=== PATIENT | male | born 1955 | race Caucasian/White ===

== ENCOUNTER 2022-05-05 11:36 | Emergency (ER) | payer SELFPAY ==
[2022-05-05 11:45] VITALS: BP 91/57; PULSE 94; RESP 18; TEMP 36.8; O2SAT 98; BMI 25.1
--- NOTE | 2022-05-05 12:25 | CT_ITS ---
WS: [id number] CT HEAD TECHNIQUE: Noncontrast CT of the head obtained from the skullbase to the vertex. CLINICAL INFORMATION: weakness/numbness COMPARISON: None. DLP: 1027.[address] scans at [facility] use at least one of these dose optimization techniques: automated e xposure control; mA and/or kV adjustment per patient size (includes targeted exams where dose is matc hed to clinical indication); or iterative reconstruction. FINDINGS: No evidence of intracranial hemorrhage or mass effect. Ventricular system and basal cisterns are aleman nt. Moderate small vessel changes with moderate parenchymal volume loss. No extra-axial fluid collect ions. No evidence of mass or mass effect. Vascular calcification. Air-fluid level in the RIGHT maxillary sinus consistent with sinusitis. Mastoid air cells are well ae rated. CT/CT head wo con* 03254 IMPRESSION: 1. No evidence of intracranial hemorrhage or mass effect. 2. Moderate small vessel changes. Moderate parenchymal volume loss worse in th e frontal lobes. 3. Vascular calcification. 4. RIGHT maxillary sinusitis.
--- NOTE | 2022-05-05 12:59 | ED_ITS ---
HPI - General Adult General: Chief complaint: General Medical Stated complaint: Exteme Weakness, numbness in lips Time Seen by Provider: 05/05/22 12:24 Source: patient Mode of arrival: ambulatory History of Present Illness: 66-year-old male presents emergency room he had numbness in the bottom of his feet that some progressively worsening for the last year. Significantly changed in the last 3 months. No trauma no history of strokes no known history of DVT. He is having increasing difficulty with walking for the last month. Patient demonstrates a flat footed gait with significant balance difficulties. He denies any headache any loss vision any difficulty speech or swallowing. Onset (ago): year(s) (1) Relieving factors: none Exacerbating factors: none Associated symptoms: Reports weakness; Deny chest pain, confusion, cough, diaphoresis, decreased appetite, dyspnea, fevers/chills, headache(s), malaise, nausea, rash, palpitations, seizures, short of breath, syncope or vomiting Treatments prior to arrival: none Review of Systems Const: Denies: fever(s), chills, malaise or diaphoresis ENMT: Denies: throat pain, ear or mastoid pain, nasal discharge or nasal congestion Card: Denies: chest pain, palpitations or syncope Resp: Denies: dyspnea GI: Denies: abdominal pain, nausea or vomiting : Denies: flank pain, dysuria, urinary frequency or urinary urgency Skin/Breast: Denies: rash Neuro: Reports: numbness in extremities, weakness in extremities, sensory changes and difficulty walking; Denies: headache(s) or confusion [facility] ED PFSH: Social History (Updated 05/05/22 @ 13:21 by Florin Salazar DO) Smoking and tobacco status: current every day smoker Alcohol intake: current Alcohol intake frequency: 3 or more drinks per day Physical Exam Const: GENERAL APPEARANCE: cooperative and comfortable ORIENTATION/CONSCIOUSNESS: Yes awake, Yes oriented to person, Yes oriented to place and Yes oriented to time HENMT: COMMON NORMALS: normocephalic, atraumatic and hearing grossly normal bilaterally HEAD & SCALP: normocephalic and atraumatic Resp: COMMON NORMALS: normal respiratory effort, No retractions, No use of accessory muscles and clear to auscultation bilaterally AUSCULTATION: clear to auscultation bilaterally Cardio: COMMON NORMALS: regular rate, regular rhythm and No murmurs present (Cardio) RATE: regular rate RHYTHM: regular rhythm GI: COMMON NORMALS: Soft to palpation and No hepatosplenomegaly present AUSCULTATION: Yes normoactive bowel sounds PALPATION: Yes Soft to palpation, No Tenderness to palpation present (GI), No Guarding due to palpation present (GI) and Yes No hepatosplenomegaly present Extremity: COMMON NORMALS: normal to inspection, capillary refill normal, no clubbing, cyanosis or edema, no calf tenderness and no pedal edema Neuro: SENSORIUM/ORIENTATION: Yes oriented to person, Yes oriented to place and Yes oriented to time COORDINATION/BALANCE: [id number] test normal DEEP TENDON REFLEXES: Right patellar reflex intensity grade: 0 and Left patellar reflex intensity grade: 0 COORDINATION: [id number] test normal Skin: COMMON NORMALS: no rashes or lesions noted GENERAL SKIN EXAM: no rashes or lesions noted Course Vital Signs: Vital signs: Vital Signs Temperature 98.2 F 05/05/22 11:45 Pulse Rate 89 05/05/22 15:16 Respiratory Rate 16 05/05/22 15:16 Blood Pressure 124/65 05/05/22 15:16 Pulse Oximetry 100 05/05/22 15:16 Oxygen Delivery Me thod 05/05/22 11:45 [facility] - General Adult Medical Decision Making On exam patient has cerebellar ataxia he has some cerebellar and cerebral atrophy on the CT but no acute findings. He has a macrocytosis and a mild hyponatremia. His transaminases are actually low with the ALT being below detectable level alk phos elevated. His vital signs are otherwise unremarkable he has no focal neurologic deficits. Deep tendon reflexes were absent of patellar tendon but his dorsum plantar flexor strength was 5 of 5. 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 Lab Data I reviewed the patient's lab results. 05/05/22 12:57 05/05/22 12:[address] 05/05/22 12:25 IMPRESSION: 1. No evidence of intracranial hemorrhage or mass effect. 2. Moderate small vessel changes. Moderate parenchymal volume loss worse in the frontal lobes. 3. Vascular calcification. 4. RIGHT maxillary sinusitis. Laboratory Results WBC 14.2 10^3/uL (4.0-10.0) H 05/05/22 12:57 RBC 4.34 10^6/uL (4.1-5.3) 05/05/22 12:57 Hgb 15.4 g/dL (11.7-16.6) 05/05/22 12:57 Hct 44.5 % (42.0-52.0) 05/05/22 12:57 MCV 102.5 fl (80-94) H 05/05/22 12:57 MCH 35.5 pg (28.0-34.0) H 05/05/22 12:57 MCHC 34.6 g/dL (30.0-36.0) 05/05/22 12:57 RDW 11.6 % (12.1-15.1) L 05/05/22 12:57 Plt Count 278 10^3/cmm (130-400) 05/05/22 12:57 MPV 8.6 fL (7.4-10.4) 05/05/22 12:57 Neut % (Auto) 74.2 % 05/05/22 12:57 Lymph % (Auto) 15.5 % 05/05/22 12:57 Wayne % (Auto) 8.8 % 05/05/22 12:57 Eos % (Auto) 0.3 % 05/05/22 12:57 Baso % (Auto) 0.6 % 05/05/22 12:57 Neut # (Auto) 10.56 10^3/uL (1.8-7.7) H 05/05/22 12:57 Lymph # (Auto) 2.2 10^3/uL (0.8-4.8) 05/05/22 12:57 Wayne # (Auto) 1.3 10^3/uL (0.2-0.9) H 05/05/22 12:57 Eos # (Auto) 0.0 10^3/uL (0.0-0.8) 05/05/22 12:57 Baso # (Auto) 0.1 10^3/uL (0.0-0.1) 05/05/22 12:57 Nucleated RBC % (auto) 0 % 05/05/22 12:57 Nucleated RBCs # 0.0 /100WBC 05/05/22 12:57 Sodium 133 mmol/L (136-145) L 05/05/22 12:57 Potassium 4.1 mmol/L (3.5-5.1) 05/05/22 12:57 Chloride 97 mmol/L (98-107) L 05/05/22 12:57 Carbon Dioxide 24 mmol/L (22-29) 05/05/22 12:57 Anion Gap 16.1 (5-19) 05/05/22 12:57 BUN 9 mg/dL (8-23) 05/05/22 12:57 Creatinine 0.5 mg/dL (0.7-1.2) L 05/05/22 12:57 GFR Calculation 166.9 mL/min (90-130) H 05/05/22 12:57 Glucose 117 mg/dL (65-115) H 05/05/22 12:57 Calculated Osmolality 276 mOsm/kg (285-295) L 05/05/22 12:57 Calcium 8.7 mg/dL (8.5-10.5) 05/05/22 12:57 Total Bilirubin 0.4 mg/dL (0.15-1.2) 05/05/22 12:57 AST 17 U/L (0-40) 05/05/22 12:57 ALT < 5 U/L (0-41) 05/05/22 12:57 Alkaline Phosphatase 153 U/L (40-130) H 05/05/22 12:57 Creatine Kinase 18 U/L (39-308) L 05/05/22 12:57 Total Protein 7.9 g/dL (6.6-8.7) 05/05/22 12:57 Albumin 3.1 g/dL (3.5-5.2) L 05/05/22 12:57 Globulin 4.8 g/dL (1.3-4.6) H 05/05/22 12:57 Urine Color Mayela (Yellow) 05/05/22 14:45 Urine Appearance Clear (CLEAR) 05/05/22 14:45 Urine pH 6 (5-7) 05/05/22 14:45 Ur Specific [place] 1.015 (1.005-1.030) 05/05/22 14:45 Urine Protein Neg (Negative) 05/05/22 14:45 Urine Glucose (UA) Norm (Normal) 05/05/22 14:45 Urine Ketones Negative (Negative) 05/05/22 14:45 Urine Blood Neg (Negative) 05/05/22 14:45 Urine Nitrate Negative (Negative) 05/05/22 14:45 Urine Bilirubin 1+ (Negative) H 05/05/22 14:45 Urine Urobilinogen 4 mg/dL (Negative) H 05/05/22 14:45 Ur Leukocyte Esterase Negative (Negative) 05/05/22 14:45 Discharge Plan Discharge Patient Disposition: Home Clinical Impression: Cerebellar ataxia, Peripheral neuropathy, Macrocytosis, Hyponatremia Condition: Stable Prescriptions: No Action Vitamin B-12 1,000 mcg Tablet 2,000 mcg PO DAILY amlodipine 10 mg tablet 10 mg PO DAILY@14 atenolol 50 mg tablet 50 mg PO DAILY@09 Discharge Orders: Discharge ED (Routine); Ordered 05/05/22 Ordered By: Florin Salazar Referrals: Kathleen Jordan [Primary Care Provider] - Discharge Diet: Usual diet Discharge Activity: Limit activity as instructed Patient Instructions: Opioid Safety, Pain Management Activity Restrictions/Additional Instructions: You were seen today for peripheral neuropathy and difficulty walking (ataxia). There is a concern that your alcohol consumption is contributing to this difficulty strongly recommend that you abstain from alcohol. Physical therapy evaluation recommended that you use a walker for ambulation. Case management make arrangements for follow-up with neurology. Coding Level of Care Code ED Track Equipment Operator for Cely Fwd Exam Comprehensive
[2022-05-05 13:00] VITALS: BP 109/62; PULSE 92; RESP 16; O2SAT 100
--- NOTE | 2022-05-05 13:03 | PC.NURSE ---
PT PLACED ON CONTINUOUS NIBP, SPO2, AND CM
[2022-05-05 13:04] LABS: Basophils # 0.1 10^3/uL (0.0-0.1); Basophils % 0.6 %; Eosinophils % 0.3 %; Hematocrit 44.5 % (42.0-52.0); Hemoglobin 15.4 g/dL (11.7-16.6); Lymphocytes # 2.2 10^3/uL (0.8-4.8); Lymphocytes % 15.5 %; Mean Corpuscular HGB Conc 34.6 g/dL (30.0-36.0); Mean Corpuscular Hemoglobin 35.5 pg (28.0-34.0); Mean Corpuscular Volume 102.5 fl (80-94); Mean Platelet Volume 8.6 fL (7.4-10.4); Monocytes # 1.3 10^3/uL (0.2-0.9); Monocytes % 8.8 %; Neutrophils # 10.56 10^3/uL (1.8-7.7); Neutrophils % 74.2 %; Nucleated Red Blood Cells % 0 %; Platelet Count 278 10^3/cmm (130-400); Red Blood Count 4.34 10^6/uL (4.1-5.3); Red Cell Distribution Width 11.6 % (12.1-15.1); White Blood Count 14.2 10^3/uL (4.0-10.0)
--- NOTE | 2022-05-05 13:04 | PC.NURSE ---
PT STATES HE HAS HAD NUMBNESS IN HIS FEET FOR A COUPLE YEARS BUT SINCE JANUARY IT HAS STARTED TO ASCEND AND IS NOW UP TO THE LEVEL OF HIS LIPS. PT PASSED HEAL TO RODRIGUEZ TEST BUT SOME TREMORS WERE NOTED. 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
[2022-05-05 13:21] LABS: Alanine Aminotransferase < 5 U/L (0-41); Albumin Level 3.1 g/dL (3.5-5.2); Alkaline Phosphatase 153 U/L (40-130); Aspartate Amino Transferase 17 U/L (0-40); Blood Urea Nitrogen 9 mg/dL (8-23); Calcium 8.7 mg/dL (8.5-10.5); Carbon Dioxide 24 mmol/L (22-29); Chloride 97 mmol/L (98-107); Globulin 4.8 g/dL (1.3-4.6); Glomerular Filtration Rate 166.9 mL/min (90-130); Glucose 117 mg/dL (65-115); Osmolality Calculated 276 mOsm/kg (285-295); Sodium 133 mmol/L (136-145); Total Bilirubin 0.4 mg/dL (0.15-1.2); Total Protein 7.9 g/dL (6.6-8.7)
[2022-05-05 13:22] LABS: Creatinine Clr Calc Pharmacy 101.3526
[2022-05-05 13:23] LABS: Anion Gap 16.1 (5-19); Potassium 4.1 mmol/L (3.5-5.1)
[2022-05-05 13:45] LABS: Creatine Phosphokinase 18 U/L (39-308)
--- NOTE | 2022-05-05 13:45 | ECG_ITS ---
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 Measurements Intervals [place] Rate: 90 P: 61 NV: 144 QRS: 9 QRSD: 111 T: 41 QT: 373 QTc: 457 Interpretive Statements SINUS RHYTHM MODERATE INTRAVENTRICULAR CONDUCTION DELAY [110+ ms QRS DURATION] No previous ECG available for comparison Electronically Signed On 05-05-2022 16:36:26 CUT OFF SAW TENDER METAL by Molly Decker M.D. [email or web address] [id number]
--- NOTE | 2022-05-05 14:02 | PC.PHAR ---
pt states he takes care of his own medications-pt states he only takes the medications entered-ext med history shows lisinopril 20mg daily last filled 01/23/22 90d/s pt states he hasnt taken that medication for months states the pharmacy just kept filling it-
[2022-05-05 14:22] VITALS: BP 107/52; PULSE 89; RESP 12; O2SAT 100
[2022-05-05 14:30] VITALS: BP 107/52; PULSE 91; RESP 15; O2SAT 100
--- NOTE | 2022-05-05 14:33 | PC.NURSE ---
PHYSICAL THERAPY IN ROOM AMBULATING PT WITH WALKER
[2022-05-05 14:58] LABS: Add Urine Microscopic? NO; Charge for UA Resulting for Rev
[2022-05-05 15:09] LABS: Blood Urine Neg (Negative); Glucose Urine UA Norm (Normal); Ketones Urine Negative (Negative); Nitrate Urine Negative (Negative); Protein Urine Neg (Negative); Specific Gravity, Urine 1.015 (1.005-1.030); Urine Appearance Clear (CLEAR); Urine Color Amber (Yellow); pH Urine 6 (5-7)
[2022-05-05 15:10] LABS: Bilirubin Urine 1+ (Negative); Leukocyte Esterase Urine Negative (Negative); Urobilinogen Urine 4 mg/dL (Negative)
[2022-05-05 15:16] VITALS: BP 124/65; PULSE 89; RESP 16; O2SAT 100
--- NOTE | 2022-05-08 14:45 | DCPLANNER ---
Addendum entered by Anneliese Capone 05/10/22 15:04: manager life received the following message from centralized scheduling regarding follow up appointment for an MRI: Did not get self-pay clearance, had to inactivate. Original Note: manager life had message to schedule an outpatient MRI for patient. manager life faxed signed order to centralized scheduling, who will call patient with appointment information.
== END 2022-05-05 15:15 | disposition home or self-care (01) ==
PROVIDERS: Emergency Provider Family Medicine; PCP Internal Medicine
DX: G11.9 Hereditary ataxia, unspecified (principal); G62.9 Polyneuropathy, unspecified; D75.89 Other specified diseases of blood and blood-forming organs; E87.1 Hypo-osmolality and hyponatremia; F17.210 Nicotine dependence, cigarettes, uncomplicated
CPT/HCPCS: 70450; 80053; 81003; 82550; 85025; 93005; 97110; 97161; 99285

== ENCOUNTER 2022-05-29 12:18 | Emergency (ER) | payer SELFPAY ==
[2022-05-29] VITALS (14 sets, daily range): BP systolic 86–116; BP diastolic 50–61; PULSE 75–90; RESP 13–23; TEMP 36.3; O2SAT 94–98; BMI 25.1
--- NOTE | 2022-05-29 12:49 | W.ED.WEAKNES ---
HPI - Weakness General: Chief complaint: Weakness Stated complaint: Blurry in L eye, Numbness in arms and face Time Seen by Provider: 05/29/22 12:48 Source: patient Mode of arrival: ambulatory History of Present Illness: 66-year-old male presents emergency room complaining of bilateral weakness numbness difficulty with balance been present for 4 months. Seen this patient previously approximately 3 weeks ago with similar presentation he had cerebellar and cerebral atrophy at that time he is a heavy drinker he had macrocytosis and hyponatremia. 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 We had referred him to neurology he has not seen Dr. Velazco yet but he does have an appointment in early August. He did not see his primary care doctor but contacted them by phone today, and ws advised to come to be hospitalized so he came to the emergency room. MD Complaint: generalized weakness Onset (ago): month(s) (3-4) Duration: constant and progressively worsening Location: generalized Severity: mild Quality: tingling and numbness Relieving factors: none Exacerbating factors: none Associated symptoms: Denies chest pain, chills, confusion, melena, decreased appetite, diaphoresis, dysuria, easy bruising, fever(s), headache(s), myalgias, nausea, rash, short of breath, syncope or vomiting Review of Systems Const: Denies: fever(s), chills or diaphoresis Eyes: Reports: blurry vision (Left eye) ENMT: Denies: throat pain, ear or mastoid pain, nasal discharge or nasal congestion Card: Denies: chest pain, palpitations, irregular heart rhythm or syncope Resp: Denies: dyspnea, productive cough or non-productive cough GI: Denies: nausea, vomiting or melena : Denies: dysuria, urinary frequency or urinary urgency Skin/Breast: Denies: rash or pruritus Neuro: Reports: numbness in extremities, weakness in extremities and difficulty walking; Denies: headache(s) or confusion Reynaldo/Lymph: Denies: easy bruising PFSH ED PFSH: Medical History (Updated 06/06/22 @ 00:00 by ALEJANDRINA Valdez) Alcoholism Hypertension Social History (Updated 05/05/22 @ 13:21 by Florin Salazar DO) Smoking and tobacco status: current every day smoker Alcohol intake: current Alcohol intake frequency: 3 or more drinks per day Physical Exam Const: GENERAL APPEARANCE: cooperative and comfortable ORIENTATION/CONSCIOUSNESS: Yes awake HENMT: COMMON NORMALS: normocephalic and atraumatic HEAD & SCALP: normocephalic and atraumatic Resp: COMMON NORMALS: normal respiratory effort, No retractions, No use of accessory muscles and clear to auscultation bilaterally AUSCULTATION: clear to auscultation bilaterally Cardio: COMMON NORMALS: regular rate, regular rhythm and No murmurs present (Cardio) RATE: regular rate RHYTHM: regular rhythm GI: COMMON NORMALS: Soft to palpation and No hepatosplenomegaly present AUSCULTATION: Yes normoactive bowel sounds PALPATION: Yes Soft to palpation, No Tenderness to palpation present (GI), No Guarding due to palpation present (GI) and Yes No hepatosplenomegaly present Extremity: COMMON NORMALS: normal to inspection, capillary refill normal, no clubbing, cyanosis or edema, no calf tenderness and no pedal edema Skin: COMMON NORMALS: no rashes or lesions noted GENERAL SKIN EXAM: no rashes or lesions noted Course Vital Signs: Vital signs: Vital Signs Temperature 97.4 F L 05/29/22 12:34 Pulse Rate 75 05/29/22 14:37 Respiratory Rate 18 05/29/22 14:37 Blood Pressure 95/50 05/29/22 14:37 Pulse Oximetry 98 05/29/22 14:37 Oxygen Delivery Me thod 05/29/22 12:48 MDM - Weakness Medical Decision Making She has an upcoming appointment with neurology. Patient at the ER visit with him confides that the patient is continuing to drink. Patient has been seen previously as cerebellar ataxia and peripheral neuropathy likely due to his longstanding alcohol use. He does not have anything new or acute but continues to have difficulty with a current problem. Recommend he follow-up with neurology as currently planned. His blood pressure is running low recommend he decrease his amlodipine from 10 to 5 mg. Additionally recommend that he follow-up with his primary care doctor if is still low he may need to further decrease his medications including potentially stopping the amlodipine and/or the atenolol. Medical Records I reviewed the patient's medical records. Lab Data I reviewed the patient's lab results. 05/29/22 13:00 05/29/22 13:[address] 05/29/22 12:57 IMPRESSION: 1. No evidence of intracranial hemorrhage or mass effect. 2. Mild to moderate small vessel changes. Moderate parenchymal volume loss. 3. Inspissated secretions in the RIGHT maxillary sinus. 4. No acute intracranial findings. Laboratory Results WBC 13.8 10^3/uL (4.0-10.0) H 05/29/22 13:00 RBC 4.24 10^6/uL (4.1-5.3) 05/29/22 13:00 Hgb 15.0 g/dL (11.7-16.6) 05/29/22 13:00 Hct 43.6 % (42.0-52.0) 05/29/22 13:00 MCV 102.8 fl (80-94) H 05/29/22 13:00 MCH 35.4 pg (28.0-34.0) H 05/29/22 13:00 MCHC 34.4 g/dL (30.0-36.0) 05/29/22 13:00 RDW 12.4 % (12.1-15.1) 05/29/22 13:00 Plt Count 350 10^3/cmm (130-400) 05/29/22 13:00 MPV 8.2 fL (7.4-10.4) 05/29/22 13:00 Neut % (Auto) 72.7 % 05/29/22 13:00 Lymph % (Auto) 17.5 % 05/29/22 13:00 [place] % (Auto) 7.4 % 05/29/22 13:00 Eos % (Auto) 0.7 % 05/29/22 13:00 Baso % (Auto) 0.8 % 05/29/22 13:00 Neut # (Auto) 10.01 10^3/uL (1.8-7.7) H 05/29/22 13:00 Lymph # (Auto) 2.4 10^3/uL (0.8-4.8) 05/29/22 13:00 [place] # (Auto) 1.0 10^3/uL (0.2-0.9) H 05/29/22 13:00 Eos # (Auto) 0.1 10^3/uL (0.0-0.8) 05/29/22 13:00 Baso # (Auto) 0.1 10^3/uL (0.0-0.1) 05/29/22 13:00 Nucleated RBC % (auto) 0 % 05/29/22 13:00 Nucleated RBCs # 0.0 /100WBC 05/29/22 13:00 Sodium 131 mmol/L (136-145) L 05/29/22 13:00 Potassium 3.5 mmol/L (3.5-5.1) 05/29/22 13:00 Chloride 95 mmol/L (98-107) L 05/29/22 13:00 Carbon Dioxide 25 mmol/L (22-29) 05/29/22 13:00 Anion Gap 14.5 (5-19) 05/29/22 13:00 BUN 8 mg/dL (8-23) 05/29/22 13:00 Creatinine 0.5 mg/dL (0.7-1.2) L 05/29/22 13:00 GFR Calculation 166.9 mL/min (90-130) H 05/29/22 13:00 Glucose 134 mg/dL (65-115) H 05/29/22 13:00 Calculated Osmolality 272 mOsm/kg (285-295) L 05/29/22 13:00 Calcium 9.1 mg/dL (8.5-10.5) 05/29/22 13:00 Total Bilirubin 0.4 mg/dL (0.15-1.2) 05/29/22 13:00 AST 17 U/L (0-40) 05/29/22 13:00 ALT < 5 U/L (0-41) 05/29/22 13:00 Alkaline Phosphatase 106 U/L (40-130) 05/29/22 13:00 Total Protein 7.8 g/dL (6.6-8.7) 05/29/22 13:00 Albumin 3.3 g/dL (3.5-5.2) L 05/29/22 13:00 Globulin 4.5 g/dL (1.3-4.6) 05/29/22 13:00 Urine Color Mayela (Yellow) 05/29/22 13:48 Urine Appearance Clear (CLEAR) 05/29/22 13:48 Urine pH 6 (5-7) 05/29/22 13:48 Ur Specific [place] 1.015 (1.005-1.030) 05/29/22 13:48 Urine Protein Trace (Negative) 05/29/22 13:48 Urine Glucose (UA) Norm (Normal) 05/29/22 13:48 Urine Ketones Negative (Negative) 05/29/22 13:48 Urine Blood Neg (Negative) 05/29/22 13:48 Urine Nitrate Negative (Negative) 05/29/22 13:48 Urine Bilirubin 1+ (Negative) H 05/29/22 13:48 Urine Urobilinogen 4 mg/dL (Negative) H 05/29/22 13:48 Ur Leukocyte Esterase Negative (Negative) 05/29/22 13:48 Urine RBC None /hpf (0-2) 05/29/22 13:48 Urine WBC Rare /hpf (0-5) 05/29/22 13:48 Ur Squamous Epith Cells Rare /hpf (0-5) 05/29/22 13:48 Calcium Oxalate Crystal 0-4 /hpf H 05/29/22 13:48 Amorphous Sediment 1+ /hpf 05/29/22 13:48 Urine Bacteria None /hpf (NONE) 05/29/22 13:48 Urine Mucus 4+ /hpf 05/29/22 13:48 Discharge Plan Discharge Patient Disposition: Home Clinical Impression: Cerebellar ataxia, Hypertension, Alcoholism Condition: Stable Prescriptions: Changed amlodipine 10 mg tablet 5 mg PO DAILY@14 Qty: 15 0RF No Action cyanocobalamin (vitamin B-12) [Vitamin B-12] 1,000 mcg Tablet 2,000 mcg PO DAILY atenolol 50 mg tablet 50 mg PO DAILY@09 Discharge Orders: Discharge ED (Routine); Ordered 05/29/22 Ordered By: Florin Salazar Referrals: Kathleen Jordan [Primary Care Provider] - Discharge Diet: Usual diet Discharge Activity: Resume usual activity Patient Instructions: Opioid Safety, Pain Management Activity Restrictions/Additional Instructions: You were seen today for cerebellar ataxia. Suspect this is due to long-term use of alcohol. It was also noted that your blood pressure is consistently running low. I recommend that you decrease your amlodipine to 5 mg daily and recheck with his primary care doctor within the next week. Coding Level of Care Code ED Coating Machine Helper for Cely Moran NIH stroke score NIHSS Level Of Consciousness - 1a: 0 Level Of Consciousness Questions - 1b: Both Correct Level Of Consciousness Commands - 1c: Both Correct Best Gaze - 2: Normal Visual [place] - 3: No Visual Loss (L eye blurry no vision loss) Facial Palsy - 4: Normal Motor Arm Right - 5: No Drift Motor Arm Left - 5: No Drift Motor Leg Right - 6: No Drift Motor Leg Left - 6: No Drift Limb Ataxia - 7: Present In Two Limbs Sensory - 8: Mild To Moderate Loss Best Language - 9: No Aphasia Dysarthia - 10: Normal Extinction And Inattention - 11: 0 Score Total Score: 3
--- NOTE | 2022-05-29 12:57 | CT_ITS ---
WS: [facility]AD2 CT HEAD TECHNIQUE: Noncontrast CT of the head obtained from the skullbase to the vertex. CLINICAL INFORMATION: visual changes COMPARISON: CT May 05, 2022 DLP: 1078.[address] scans at [facility] use at least one of these dose optimization techniques: automated e xposure control; mA and/or kV adjustment per patient size (includes targeted exams where dose is matc hed to clinical indication); or iterative reconstruction. FINDINGS: No evidence of intracranial hemorrhage or mass effect. Ventricular system and basal cisterns are aleman nt. Mild to moderate small vessel changes with moderate parenchymal volume loss. No extra-axial fluid collections. No evidence of mass or mass effect. Normal ruano-white differentiation. Vascular calcifi cation. Opacification of the partially visualized RIGHT maxillary sinus with inspissated secretions. Mastoid air cells well aerated. Paranasal sinuses are otherwise well aerated. CT/CT head wo con* [id number] IMPRESSION: 1. No evidence of intracranial hemorrhage or mass effect. 2. Mild to moderate small vessel changes. Moderate parenchymal volume loss. 3. Inspissated secretions in the RIGHT maxillary sinus. 4. No acute intracranial findings.
[2022-05-29] MEDS: sodium chloride 0.9% 1,000 ML 999 ML IV (13:11)
[2022-05-29 13:18] LABS: Basophils # 0.1 10^3/uL (0.0-0.1); Basophils % 0.8 %; Eosinophils # 0.1 10^3/uL (0.0-0.8); Eosinophils % 0.7 %; Hematocrit 43.6 % (42.0-52.0); Lymphocytes # 2.4 10^3/uL (0.8-4.8); Lymphocytes % 17.5 %; Mean Corpuscular HGB Conc 34.4 g/dL (30.0-36.0); Mean Corpuscular Hemoglobin 35.4 pg (28.0-34.0); Mean Corpuscular Volume 102.8 fl (80-94); Mean Platelet Volume 8.2 fL (7.4-10.4); Monocytes % 7.4 %; Neutrophils # 10.01 10^3/uL (1.8-7.7); Neutrophils % 72.7 %; Nucleated Red Blood Cells % 0 %; Platelet Count 350 10^3/cmm (130-400); Red Blood Count 4.24 10^6/uL (4.1-5.3); Red Cell Distribution Width 12.4 % (12.1-15.1); White Blood Count 13.8 10^3/uL (4.0-10.0)
[2022-05-29 13:32] LABS: Alanine Aminotransferase < 5 U/L (0-41); Albumin Level 3.3 g/dL (3.5-5.2); Alkaline Phosphatase 106 U/L (40-130); Anion Gap 14.5 (5-19); Aspartate Amino Transferase 17 U/L (0-40); Blood Urea Nitrogen 8 mg/dL (8-23); Calcium 9.1 mg/dL (8.5-10.5); Carbon Dioxide 25 mmol/L (22-29); Chloride 95 mmol/L (98-107); Globulin 4.5 g/dL (1.3-4.6); Glomerular Filtration Rate 166.9 mL/min (90-130); Glucose 134 mg/dL (65-115); Osmolality Calculated 272 mOsm/kg (285-295); Potassium 3.5 mmol/L (3.5-5.1); Sodium 131 mmol/L (136-145); Total Bilirubin 0.4 mg/dL (0.15-1.2); Total Protein 7.8 g/dL (6.6-8.7)
[2022-05-29 13:36] LABS: Creatinine Clr Calc Pharmacy 101.3526
--- NOTE | 2022-05-29 13:37 | DCPLANNER ---
Addendum entered by Anneliese Capone 06/02/22 13:31: hedge fund manager received the following message from neurology regarding follow up appointment: Patient stated that he has found another Neurologist and to cancel this appt. On 05/30/22 @ 17:17 Kathleen Eid Wrote To Anneliese Capone Patient is scheduled for 07/19/22 @ 12:20 pm. We will notify the patient. Original Note: hedge fund manager had message to schedule a follow up appointment for patient with neurology. hedge fund manager sent patients information to the front office staff at neurology. Patients information will be printed and reviewed. Clinic will call patient with appointment information.
[2022-05-29 14:16] LABS: Glucose Urine UA Norm (Normal); Protein Urine Trace (Negative); Specific Gravity, Urine 1.015 (1.005-1.030); Urine Appearance Clear (CLEAR); Urine Color Amber (Yellow); pH Urine 6 (5-7)
[2022-05-29 14:17] LABS: Add Urine Culture? No; Add Urine Microscopic? YES; Amorphous Sediment Urine 1+ /hpf; Bilirubin Urine 1+ (Negative); Blood Urine Neg (Negative); Calcium Oxalate Crystals Urine 0-4 /hpf; Ketones Urine Negative (Negative); Leukocyte Esterase Urine Negative (Negative); Mucus Urine 4+ /hpf; Nitrate Urine Negative (Negative); Squamous Epithelial Cell Urine RARE /hpf (0-5); Urobilinogen Urine 4 mg/dL (Negative); WBC Urine RARE /hpf (0-5)
== END 2022-05-29 14:37 | disposition home or self-care (01) ==
PROVIDERS: Emergency Provider Family Medicine; PCP Internal Medicine
DX: G11.9 Hereditary ataxia, unspecified (principal); I10 Essential (primary) hypertension; F10.20 Alcohol dependence, uncomplicated; F17.210 Nicotine dependence, cigarettes, uncomplicated
CPT/HCPCS: 70450; 80053; 81001; 85025; 96360; 99285; J7030